=== PATIENT | male | born 1995 | race Caucasian/White ===

== ENCOUNTER 2017-07-10 17:37 | Inpatient (IN) | payer MEDICAID ==
[2017-07-10] MEDS ORDERED: LORazepam 2 MG/ML INJ IVP ONE (17:43)
[2017-07-10] MEDS ORDERED: NS 1,000 ML IV ONE (17:47)
--- NOTE | 2017-07-10 17:47 | CPEKG ---
Heart Rate: 155 RR Interval: 387 P-R Interval: 164 QRSD Interval: 86 QT Interval: 208 QTC Interval: 334 P [place]: 72 QRS [place]: 86 T Wave [place]: -51 EKG Severity - ABNORMAL ECG - EKG Impression: SINUS TACHYCARDIA EKG Impression: RAJESH, CONSIDER BIATRIAL ABNORMALITIES Electronically Signed By: Alex Herrera 10-Jul-2017 21:42:49
--- NOTE | 2017-07-10 17:50 | EDPHY ---
H & P Time Seen by Provider: 07/10/17 17:40 HPI/ROS: Chief complaint. Benadryl overdose HPI. 21-year-old male here by EMS about 1 hr after taking 125 mg Benadryl tablets to help him stop coughing. Initially the patient had normal mental status. He is subsequently quit speaking to the paramedics. They find him quite tachycardic. The patient arrives and about 1 min after arrival the patient has a generalized tonic-clonic seizure lasting about 1 min. He is given Ativan intravenously. Seizure stops. Vital signs show the patient be tachycardic and hypertensive. Patient does not speak and no other information is known about this patient. ROS Unable as the patient does not speak Past Medical/Surgical History: Unknown past medical history other than the patient has 2 sets of labs that were ordered from [facility] [place] so the patient was have pre-existing mental health problem. Social History: Unknown social history Physical Exam: General Appearance: Nonverbal male eyes open status post having a seizure. Vital signs show heart rate to be 157 and blood pressure 126/50. Tachypneic but breathing on his own with 97% pulse ox. Eyes: Pupils are dilated and poorly reactive. ENT, mucous membranes dry Respiratory: Tachypnea but lungs are clear Cardiovascular: Tachycardia with regular rate Gastrointestinal: Abdomen is soft Neurological: Eyes open; moves all extremities. Nonverbal; seizure Skin:[ Warm and dry, no rashes.] Musculoskeletal: No obvious musculoskeletal findings Extremities [ symmetrical, full range of motion.] Psychiatric: Nonverbal Constitutional: Initial Vital Signs Temperature (C) 37.2 C 07/10/17 17:37 Heart Rate 180 H 07/10/17 17:37 Respiratory Rate 34 H 07/10/17 17:37 Blood Pressure 165/92 H 07/10/17 17:37 O2 Sat (%) 98 07/10/17 17:37 O2 Delivery Mode Non-Rebreather Mask O2 (L/minute) 15 Allergies/Adverse Reactions: Unable to Assess Allergy (Verified 07/10/17 19:26) Home Medications: Medication Instructions Recorded Unobtainable 07/10/17 Medical Decision Making - Diagnostics EKG Interpretation: EKG interpreted by me shows sinus tachycardia normal interval and axis. QRS otherwise appears normal with narrow complex. No significant ST elevation or depression. Rate is 155 Imaging Results: Imaging Impressions Chest X-Ray 07/10/17 17:47 Impression: 1. No acute pulmonary disease. 2. Consider chest two views when the patient's medical condition permits. Chest X-Ray 07/10/17 18:31 Impression: Slightly low ET tube. Results discussed with Dr. Alex Herrera at 18:47 PM. Chest X-Ray 07/10/17 18:48 Impression: Satisfactory position of endotracheal tube. Procedures: IV normal saline, monitor. Ativan was given for seizure. ED Course/Re-evaluation: I consulted and discussed the case with poison Control. They recommend intubation and Ativan. They recommend serial EKGs watching for QRS widening which will be treated with bicarbonate. They recommend liberal use of benzodiazepines case # [id number] Patient is preoxygenated. I tried to give informed discussion and consent with the patient however he does not respond. He has horizontal nystagmus. Patient is given 20 mg of etomidate followed by 125 mg of succinylcholine. He is intubated on 1st pass using glide scope. Cords were visualized. I visualize tube passing through the cords. Colorimeter is checked in we get good color change. Breath sounds are found to be symmetrical. Oxygen saturation is stable and 98%. There is steam in the tube. Following intubation patient is given Versed 5 mg IV followed by vecuronium 8 mg IV. Propofol drip is ordered. Post intubation chest x-ray is ordered I consulted discussed the case with Dr. Rod, hospitalist who agrees to the admission and sees the patient in the emergency department Endotracheal tube is found to be somewhat down the right mainstem bronchus. It is repositioned. Differential Diagnosis: Apparent Benadryl overdose. Patient has an empty pill bottle with 125 mg Benadryl tablets missing. He was apparently found by EMS at the store where he just bought the Benadryl pills. No evidence of intracranial bleeding or other ingestions at this point. Patient's airway was not protected by the patient's so he has been intubated. Plan is ICU admission. Critical Care Time: Critical care time exclusive procedures 50 min - Data Points Laboratory Results: Laboratory Results 07/10/17 17:40 07/10/17 17:40 07/10/17 07/10/17 07/10/17 18:46 17:40 17:40 WBC RBC Hgb Hct MCV MCH MCHC RDW Plt Count MPV Neut % (Auto) Lymph % (Auto) Banner % (Auto) Eos % (Auto) Baso % (Auto) Nucleat RBC Rel Count Absolute Neuts (auto) Absolute Lymphs (auto) Absolute Monos (auto) Absolute Eos (auto) Absolute Basos (auto) Absolute Nucleated RBC Immature Gran % Immature Gran # PT 14.4 SEC SEC (12.0-15.0) INR 1.10 (0.83-1.16) APTT 30.9 SEC SEC (23.0-38.0) Sodium 158 mEq/L H mEq/L (135-145) Potassium 3.8 mEq/L mEq/L (3.5-5.2) Chloride 112 mEq/L H mEq/L (97-110) Carbon Dioxide 16 mEq/l L mEq/l (22-31) Anion Gap 30 mEq/L H mEq/L (8-16) BUN 16 mg/dL mg/dL (7-23) Creatinine 1.1 mg/dL mg/dL (0.7-1.3) Estimated GFR > 60 Glucose 73 mg/dL mg/dL (70-100) Calcium 10.5 mg/dL H mg/dL (8.5-10.4) Total Bilirubin 0.8 mg/dL mg/dL (0.1-1.4) Conjugated Bilirubin 0.4 mg/dL mg/dL (0.0-0.5) Unconjugated Bilirubin 0.4 mg/dL mg/dL (0.0-1.1) AST 44 IU/L IU/L (17-59) ALT 31 IU/L IU/L (21-72) Alkaline Phosphatase 85 IU/L IU/L (38-126) Troponin I < 0.012 ng/mL ng/mL (0.000-0.034) Total Protein 8.4 g/dL H g/dL (6.3-8.2) Albumin 5.2 g/dL H g/dL (3.5-5.0) Lipase 138 IU/L IU/L (23-300) Salicylates < 1.0 mg/dL L mg/dL (2.0-20.0) Urine Opiates Screen NEGATIVE (NEGATIVE) Acetaminophen < 10 mcg/mL L mcg/mL (10-30) Urine Barbiturates NEGATIVE (NEGATIVE) Ur Phencyclidine Scrn NEGATIVE (NEGATIVE) Ur Amphetamine Screen NEGATIVE (NEGATIVE) U Benzodiazepines Scrn NEGATIVE (NEGATIVE) Urine Cocaine Screen NEGATIVE (NEGATIVE) U Marijuana (THC) Screen NEGATIVE (NEGATIVE) Ethyl Alcohol < 10 mg/dL mg/dL (0-10) 07/10/17 17:40 WBC 11.68 10^3/uL H 10^3/uL (3.80-9.50) RBC 5.74 10^6/uL 10^6/uL (4.40-6.38) Hgb 18.0 g/dL H g/dL (13.7-17.5) Hct 56.3 % H % (40.0-51.0) MCV 98.1 fL fL (81.5-99.8) MCH 31.4 pg pg (27.9-34.1) MCHC 32.0 g/dL L g/dL (32.4-36.7) RDW 12.4 % % (11.5-15.2) Plt Count 279 10^3/uL 10^3/uL (150-400) MPV 10.8 fL fL (8.7-11.7) Neut % (Auto) 58.1 % % (39.3-74.2) Lymph % (Auto) 24.3 % % (15.0-45.0) Banner % (Auto) 15.2 % H % (4.5-13.0) Eos % (Auto) 0.9 % % (0.6-7.6) Baso % (Auto) 0.6 % % (0.3-1.7) Nucleat RBC Rel Count 0.2 % % (0.0-0.2) Absolute Neuts (auto) 6.79 10^3/uL H 10^3/uL (1.70-6.50) Absolute Lymphs (auto) 2.84 10^3/uL 10^3/uL (1.00-3.00) Absolute Monos (auto) 1.77 10^3/uL H 10^3/uL (0.30-0.80) Absolute Eos (auto) 0.11 10^3/uL 10^3/uL (0.03-0.40) Absolute Basos (auto) 0.07 10^3/uL 10^3/uL (0.02-0.10) Absolute Nucleated RBC 0.02 10^3/uL H 10^3/uL (0-0.01) Immature Gran % 0.9 % % (0.0-1.1) Immature Gran # 0.10 10^3/uL 10^3/uL (0.00-0.10) PT INR APTT Sodium Potassium Chloride Carbon Dioxide Anion Gap BUN Creatinine Estimated GFR Glucose Calcium Total Bilirubin Conjugated Bilirubin Unconjugated Bilirubin AST ALT Alkaline Phosphatase Troponin I Total Protein Albumin Lipase Salicylates Urine Opiates Screen Acetaminophen Urine Barbiturates Ur Phencyclidine Scrn Ur Amphetamine Screen U Benzodiazepines Scrn Urine Cocaine Screen U Marijuana (THC) Screen Ethyl Alcohol Medications Given: Acetaminophen (Tylenol Rectal) 650 mg IA Q4HRS PRN PRN Reason: Pain, Mild/Fever,Can't Take PO Stop: 01/06/18 19:19 Last Admin: 07/10/17 19:22 Dose: 650 mg Fentanyl 1,000 mcg/ Sodium (Chloride) 100 mls @ 0 mls/hr IV CONT MICHAEL; Per Protocol PRN Reason: Protocol Stop: 07/20/17 19:18 Last Admin: 07/10/17 20:36 Dose: 100 mls Discontinued Medications Etomidate (Etomidate) 20 mg IVP EDNOW ONE Stop: 07/10/17 18:07 Last Admin: 07/10/17 18:16 Dose: 20 mg Sodium Chloride (Ns) 1,000 mls @ 0 mls/hr IV EDNOW ONE; Wide Open PRN Reason: Protocol Stop: 07/10/17 17:48 Last Admin: 07/10/17 17:53 Dose: 1,000 mls Propofol (Diprivan 10 Mg/Ml (Premix)) 50 mls @ 0 mls/hr IV EDNOW ONE; As Directed PRN Reason: Protocol Stop: 07/10/17 18:33 Last Admin: 07/10/17 18:50 Dose: 50 mls Lorazepam (Ativan Injection) 1 mg IVP EDNOW ONE Stop: 07/10/17 17:44 Last Admin: 07/10/17 17:46 Dose: 1 mg Midazolam HCl (Versed) 5 mg IM EDNOW ONE Stop: 07/10/17 18:32 Last Admin: 07/10/17 18:46 Dose: 5 mg Succinylcholine Chloride (Quelicin) 120 mg IVP EDNOW ONE Stop: 07/10/17 18:08 Last Admin: 07/10/17 18:17 Dose: 120 mg Vecuronium Anderson (Vecuronium Anderson) 8 mg IV EDNOW ONE Stop: 07/10/17 18:33 Last Admin: 07/10/17 18:49 Dose: 8 mg Departure - Departure Disposition: [facility] Inpatient Acute Clinical Impression: Benadryl ingestion Condition: Fair
[2017-07-10] MEDS ORDERED: ETOMIDATE 40 MG/20 ML INJ IVP ONE (18:06)
[2017-07-10] MEDS ORDERED: SUCCINYLCHOLINE CHLORIDE 200 MG/10 ML SYR IVP ONE ×2 (18:07→20:44)
[2017-07-10 18:08] LABS: PLATELET COUNT 279 10^3/uL (150-400)
[2017-07-10 18:20] LABS: INR 1.1 (0.83-1.16); PROTIME(PATIENT) 14.4 SEC (12.0-15.0)
[2017-07-10] MEDS ORDERED: MIDAZOLAM 10 MG/2 ML VIAL IM ONE (18:31)
[2017-07-10] MEDS ORDERED: PROPOFOL/EMULSION 50 ML IV ONE (18:32)
[2017-07-10] MEDS ORDERED: VECURONIUM BROMIDE 10 MG VIAL IV ONE (18:32)
--- NOTE | 2017-07-10 19:07 | CPEKG ---
Heart Rate: 114 RR Interval: 526 P-R Interval: 132 QRSD Interval: 80 QT Interval: 352 QTC Interval: 485 P [place]: 79 QRS [place]: 88 T Wave [place]: -3 EKG Severity - BORDERLINE ECG - EKG Impression: SINUS TACHYCARDIA EKG Impression: BORDERLINE T ABNORMALITIES, INFERIOR LEADS EKG Impression: BORDERLINE PROLONGED QT INTERVAL Electronically Signed By: Alex Herrera 10-Jul-2017 21:42:41
[2017-07-10] MEDS ORDERED: LORazepam 2 MG/ML INJ IVP PRN (19:10)
[2017-07-10] MEDS ORDERED: ACETAMINOPHEN 650 MG SUPP PR ONE (19:19)
[2017-07-10] MEDS: ACETAMINOPHEN 650 MG SUPP PR PRN (19:22)
[2017-07-10] MEDS ORDERED: ONDANSETRON 4 MG/2 ML VIAL IVP PRN (19:26)
[2017-07-10] MEDS ORDERED: fentaNYL/NACL 100 ML IV SCH ×2 (19:30)
[2017-07-10 19:39] LABS: CREATINE KINASE 215 IU/L (0-224)
--- NOTE | 2017-07-10 20:22 | GHP ---
[f rep st] HISTORY AND PHYSICAL DATE OF ADMISSION: 07/10/2017 HISTORY OF PRESENT ILLNESS: The patient is a 21-year-old gentleman with an apparent psychiatric hist ory, who took one hundred 25 mg Benadryl tablets in order to treat a cough. It sounds like he then s ummoned EMS, and he was alert when they came and got there, but he became more somnolent during the t rip to the hospital and then became subsequently tachycardic and unresponsive. He had a generalized tonic-clonic seizure lasting about a minute. Upon arrival to the emergency department, he was given Ativan. The emergency department physician noticed the patient had lateral nystagmus when he was int ubating him. There was no evidence of diarrhea all over the patient when they came and got him. REVIEW OF SYSTEMS: Complete 10-point review of systems was unable to be obtained because of an obtun ded patient. PAST MEDICAL HISTORY: Unknown. He has had 2 sets of labs ordered from [facility], which is a local Behavior[facility]. SOCIAL HISTORY: Unknown. FAMILY HISTORY: Unknown. ALLERGIES: Unknown. MEDICATIONS: Unknown. PHYSICAL EXAMINATION: VITAL SIGNS: Temp 37.2, now 38.4. Blood pressure 165/92. Pulse 180, now 112 . Breathing 34 times a minute, now 12, 98% on a non-rebreather now on a ventilator. GENERAL: He is intubated, sedated. Sclerae injected. Pupils are 4 mm and reactive. NECK: Supple without lymphad enopathy or JVD. LUNGS: Clear to auscultation anterolaterally. HEART: S1, S2. Tachycardic. ABDO MEN: Soft. Bowel sounds are present. There is no rebound. There is no guarding. LOWER EXTREMITIE S: Without edema. Calves nontender. SKIN: Without rash. NEUROLOGIC: Notable for an intubated, s edated patient who was obtunded, but otherwise nonfocal. LABORATORY DATA: White count is 11.7, hematocrit is 56, platelets are 279,000. INR is 1.1. Sodium is 158, potassium 3.8, chloride 112, bicarb 16, BUN 16, creatinine 1.1. Calcium is 10.5. Troponin i s less than 0.012. LFTs are normal. CK is pending. Lipase is pending. ABG is pending. Tox screen is negative for salicylates, acetaminophen, alcohol, as well as opiates, barbiturates, PCP, amphetam ine, benzodiazepines. [employer] level is pending. EKG on presentation shows sinus tach at 155 with no rmal axis and intervals. Chest x-ray on presentation interpreted by me shows no active pulmonary dis ease. Subsequent EKG shows sinus at 114 with normal axis and intervals and no ST or T-wave changes. Chest x-ray shows an intubated patient with an ET tube in satisfactory position. I discussed the case with Dr. Alex Herrera and Dr. Chico Henriquez. ASSESSMENT/PLAN: 21-year-old gentleman presents with Benadryl overdose, seizure, hyponatremia. 1. Benadryl overdose. Presumably this was a volitional move, suicidal gesture. At this point in ti me, he is too obtunded to leave. So we can hold off on an M1 hold for now. Certainly, if he tries t o leave, an M1 hold would be appropriate. 2. Benadryl overdose. The toxidrome includes seizures, obtundation, sinus tachycardia, as well as s omnolence. We will follow him on telemetry, given the risk for widening of his QRS. We will provide p.r.n. benzodiazepines. 3. Hypernatremia. This is a surprising finding. There is some consideration it may have been drawn from near his IV fluids. However, that would not explain his high calcium and his high hematocrit a lso drawn off the same line it is repeating now. He definitely has a free water deficit if this is, in fact, the case. I have called [facility], who will see him in consultation. He received a liter of IV fluids. I will await further IV fluid administration before providing him with more. We will also check a serum osmoles, urine osmoles, calculated urine osmol gap. Diabetes insipidus and lithium poi soning are considered. [employer] level is pending. It is notable that the patient has clear urine in his Ngo, but that is after administration of normal saline. In summary, wait for the repeat value to verify that this is, in fact, the case and how to manage it. We will also send urine osmolality. If urine osmolalities are low in the setting of hypernatremia, this is likely consistent with diabet es insipidus. 4. Anion gap acidosis. Workup as above. ABG is pending. This may have been as a result of his sei zure. The patient had a seizure at the time of presentation. 5. Sinus tachycardia attributable to Benadryl overdose. 6. Polycythemia. The patient appears clinically euvolemic now and perhaps is dry. 7. Disposition: ICU. 8. Prophylaxis: Pharmacologic prophylaxis indicated. However, wait for his noncontrast head CT. 9. Seizure in an unresponsive patient. We will check a noncontrast head CT prior to sending him ups taileelee. DISPOSITION: ICU. /[id number]/MODL
[2017-07-10] MEDS ORDERED: ETOMIDATE 40 MG/20 ML INJ ONE (20:44)
--- NOTE | 2017-07-10 21:33 | ASMTCMCOM ---
CM Note CM Note Notes: Pt presented to the ED via EMS after reportedly ingesting ~100 25mg Benadryl tabs "to treat a cough." Pt arrived unresponsive and was intubated. Per EMS patient appeared to have a seizure en route to the ED. Able to reach pt's father, Brennan Kowalski ([phone]) and pt's stepmother, Coby Kowalski ([phone]) who both live in [place]. Updated on pt's status. Coby and Brennan said the patient was at their home in [facility] the last two days and they just sent him back to [place] via bus. Pt had told them he was looking forward to going to school or seeking a job in [place]. They said they thought patient was doing better and "handling his emotional stress" well. Pt has a history of mental health issues but a specific diagnosis is unclear. Brennan says pt was diagnosed with Autism around the age of 1-2 yrs old. Pt was discharged from [employer] recently, due to "mental health" reasons, and then went to live with his biological mother, Lisa Vazquez, in [place] but then Brennan and Coby got him a flight back to [place]. Brennan states pt doesn't have "the best" relationship with Lisa and that he doesn't have her phone number and hasn't spoken with her in >1 yr. He says he will try to find a way to notify her but that he said pt states she "causes him more stress" and might have been taking money from pt. Pt has been staying at [facility] ([phone]) youth group home here in [place]; spoke with staff member Qamar and he said they did not have any emergency contact info listed and didn't have much further information re:pt's homelessness, social situation etc. Pt was had labs drawn for [place] in 12/2015 and 05/2016; this CM contacted [facility] but they did not have any emergency contact info listed for pt either. This CM called [employer] and provided pt's parents #s relayed that they want to be called if pt's status changes overnight. Brennan and Coby hope to either arrive to [facility] overnight or early in the morning. Pt is not on an M1 at this but per hospitalist report, if pt awakens and tries to leave, pt will be placed on an M1. CM to follow. Date Signed: 07/10/2017 09:32 PM Electronically Signed By:Jazlyn Humphries RN
--- NOTE | 2017-07-10 21:35 | ASMTLACE ---
[place] Acuity / Level of Answers: Yes Care: Did the patient have an inpatient admission? # of Emergency department Answers: 1-2 visits in the last 6 months Social determinants Answers: History of substance abuse (ETOH, street drugs, prescription drugs, etc.) Homelessness (street, snf) Mental health diagnosis (anxiety, depression, pers onality disorders, etc.) Lack of community resources and/or lack of social support (no pcp, lives alone, transportation, warren d) Score: 17 Date Signed: 07/10/2017 09:33 PM Electronically Signed By:Jazlyn Humphries RN
[2017-07-10] MEDS: NS 1,000 ML IV SCH (21:37)
[2017-07-10] MEDS: MIDAZOLAM HCL 50 MG in NS 50 ML IV SCH (22:17)
[2017-07-11] MEDS: ACETAMINOPHEN 650 MG SUPP PR PRN ×2 (00:42→10:12)
[2017-07-11] MEDS: MIDAZOLAM HCL 50 MG in NS 50 ML IV SCH (04:32)
[2017-07-11 04:46] LABS: PLATELET COUNT 177 10^3/uL (150-400)
[2017-07-11] MEDS: NS 1,000 ML IV SCH ×2 (05:20→22:22)
--- NOTE | 2017-07-11 12:34 | GCON ---
[f rep st] CONSULTATION PULMONARY/CRITICAL CARE CONSULTATION DATE OF CONSULTATION: 07/11/2017 REFERRING PHYSICIAN: Hector Rod MD REASON FOR REFERRAL: Evaluation and management of respiratory failure and diphenhydramine overdose. HISTORY: Mr. Kowalski is a 21-year-old male with a history of mental health problems and multiple i ntentional overdose attempts, who apparently took one hundred 25 mg Benadryl tablets. He apparently took these around 4 or 5 o'clock last night and was brought to EMS within an hour. He was alert when he showed up, but became more somnolent and became tachycardic and responsive. He had a generalized tonoclonic seizure lasting about a minute. He was given Ativan and was intubated. PAST MEDICAL HISTORY: MENTAL HEALTH: Patient has mental health disorder. ADMISSION MEDICATIONS: Unknown. ALLERGIES: None. SOCIAL HISTORY: Patient apparently has family in the area. There is no known history of substance ab use. FAMILY HISTORY: Unknown. REVIEW OF SYSTEMS: Unobtainable. PHYSICAL EXAMINATION: GENERAL: The patient is intubated and sedated with Versed and fentanyl. He V ersed had just stopped and he is minimally responsive, just starting to briefly respond to commands. VITAL SIGNS: Blood pressure 107/52 with a heart rate of 98. He is afebrile. Oxygen saturations ar e 100% on 40% oxygen. He is afebrile with a temperature of 38.5. HEENT: Normocephalic and atraumat ic. No icterus. NECK: No JVD. Trachea is midline. CHEST: Clear to auscultation. CARDIAC: Regu lar rate and rhythm without murmur. ABDOMEN: Soft, nontender. Bowel sounds are present. EXTREMITI ES: No clubbing, cyanosis, or edema. NEUROLOGIC: The patient is sedated and weakly follows command s, moving all extremities. LABORATORY DATA: White blood count 11.6, stable from last night. Hemoglobin is 14.7. Chemistry kristel up is 143, down from 158 at admission. Patient has an anion gap of 8, down from 30 at admission. Ca lcium is 7.3 and albumin is 5.2. Potassium is 3.9. A urine tox screen is negative, as are salicylat e, acetaminophen and alcohol levels. [place] level is less than 0.2. A chest x-ray shows some basil ar mild opacities. Images reviewed by me. An arterial blood gas shows a pH of 7.38, PO2 of 133, a C O2 of 30, and a bicarbonate of 19 on 40% oxygen and an assist-control rate of 14 with a tidal volume of 590 last night. Electrocardiogram shows a QT interval of 436 with sinus tachycardia. ASSESSMENT: 1. Diphenhydramine overdose. Patient took a large overdose last night. He had a seizure upon admis tank, although that could have been related to hypoxemia/respiratory depression. He has had no furth er seizure activity. He had a borderline prolonged QT last night, but this has not worsened overnigh t. He has been stable on the ventilator and is now starting to wake up since Versed, which he has be en on all night, has been stopped. 2. Respiratory failure. This is due to airway protection in the presence of a seizure and respirato ry depression in the emergency department. He is now starting to breathe spontaneously and has good gas exchange. 3. Anion gap metabolic acidosis. The patient initially had a fairly wide anion gap of 30, but this has now normalized. 4. Hypocalcemia. The patient's calcium level has fallen to 7.3. He had an albumin of 5.2 last nigh t, but he may have had some dilution since then, so it is unclear if he truly has hypocalcemia. RECOMMENDATIONS: 1. Will hold Versed and fentanyl and extubate if he is able to breathe spontaneously. 2. Check an ionized calcium. 3. Plan on an M1 hold once the patient is extubated, and mental health evaluation once he has been m edically cleared. /[id number]/MODL
--- NOTE | 2017-07-11 14:28 | ASMTCMCOM ---
CM Note CM Note Notes: Patient's dad has arrived and is at patient's bedside. Patient may be extubated today. M1 hold to be placed when patient starts to wake up. We will notify [facility] for eval when patient is medically stable. CM to follow. Date Signed: 07/11/2017 02:28 PM Electronically Signed By:Sruthi Escamilla LCSW
--- NOTE | 2017-07-11 15:07 | PDMN ---
Medical Necessity Medical necessity: est los>2mn for intentional Benadryl overdose, with seizure, obtundation, tachycardia, anion gap acidosis, and hypernatremia; admit to ICU, requires tele,renal consult, and further w/u; per order and H&P 07/10/17
--- NOTE | 2017-07-11 15:50 | HOSPPROG ---
Hospitalist Progress Note Assessment/Plan: DIAGNOSES: -acute intentional Benadryl overdose with 2500 mg single dose -acute respiratory failure requiring intubation and mechanical ventilation -acute anticholinergic toxidrome with flushing and high fevers, urine retention , tachycardia, dry mouth, sedation -metabolic acidosis with anion gap 30 -absence of evidence of any other ingested substances at this time -very minimal bibasilar pulmonary infiltrates with question of possible aspiration on chest x-ray -bipolar disorder with long history of poor control and reported history of 7 prior suicide attempts with medications used in overdose We have just now been able to extubate the patient safely. He is breathing adequately on 2 L of nasal cannula oxygen. His voice is extremely weak and his mouth extremely dry so he is unable to communicate very well by speaking but he is communicating with us, does appear oriented to what we are saying, cooperative at the bedside. His family a including parents and brother oral here and supportive at the bedside for him. 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 Follows respiratory function very closely, follow for any signs of aspiration Continue ICU care at this time I have now placed him on M1 hold Once clearly medically stable for transfer out of ICU will contact the mental health team to common do assessment, we are recommending inpatient mental health care at that time due to the high risk nature of this episode and his repeated episodes and history of underlying mental health disorder SUBJECTIVE: Patient is just now extubated We are unable to adequately assess symptoms as he is OBJECTIVE Vitals reviewed: T-max 39 degrees, some tachycardia, otherwise stable vitals Workers Compensation Claims Assistant, my review: Sinus tachycardia Exam: alert oriented, still fairly sedated and with a very weak voice and severely dry mouth, unable to communicate effectively; he does shake his head yes and no at times and appears to not have any significant pain at this point, does recognizes that he is in the hospital, apparently does recognize his family at the bedside skin warm dry color ok resps not labored lungs clear BSs heart regular abd soft nondistended nontender, bowel sounds currently absent limbs warm, no edema Ngo catheter in place draining clear yellow urine iv sites ok 1 in each arm Laboratory data: On chemistry his anion gap has resolved, no other acute changes CBC stable Objective: Vital Signs Temp Pulse Resp BP Pulse Ox 39.4 C H 99 14 122/60 H 100 07/11/17 12:30 07/11/17 14:00 07/11/17 14:00 07/11/17 14:00 07/11/17 14:00 Laboratory Results 07/11/17 04:30 07/11/17 04:30 07/10/17 07/11/17 07/12/17 06:59 06:59 06:59 Intake Total 2746.1 Output Total 1175 Balance 1571.1 PT 14.4 SEC (12.0-15.0) 07/10/17 17:40 INR 1.10 (0.83-1.16) 07/10/17 17:40 - Time Spent With Patient Time Spent with Patient: greater than 35 minutes Time Spent with Patient: Greater than 35 minutes spent on this patients care, greater than 50% of time spent counseling, educating, and coordinating care regarding the above mentioned plan. ICD10 Worksheet Patient Problems: Problems Problem Status Onset Suicide attempt by drug ingestion Acute - ICD10 Problem Qualifiers (1) Suicide attempt by drug ingestion
[2017-07-11] MEDS ORDERED: BIOTENE DRY MOUTH MOUTHWASH 237 ML BTL MM PRN (20:00)
[2017-07-11] MEDS ORDERED: ACETAMINOPHEN 325 MG TAB PO PRN (20:55)
[2017-07-12] MEDS: NS 1,000 ML IV SCH (06:17)
--- NOTE | 2017-07-12 10:54 | HOSPPROG ---
Hospitalist Progress Note Assessment/Plan: DIAGNOSES: -acute intentional Benadryl overdose with 2500 mg single dose -acute respiratory failure requiring intubation and mechanical ventilation -acute anticholinergic toxidrome with seizure, flushing and high fevers, urine retention, tachycardia, dry mouth, sedation -metabolic acidosis with anion gap 30 -absence of evidence of any other ingested substances at this time -very minimal bibasilar pulmonary infiltrates with question of possible aspiration on chest x-ray -bipolar disorder with long history of poor control and reported history of 7 prior suicide attempts with medications used in overdose At this point has ever mild elevation of heart rate and temperature, but the rest of his anticholinergic toxidrome is resolved. It is expected that over the next few hours this afternoon this will return to normal. At this point he is medically stable for discharge from acute care unit. Will need to get the mental health team to come assess some to make it to recommendation for disposition regarding the next step in mental health care after this dangerous overdose. I had a long discussion at the bedside with the patient about his situation. He understands that this could have been a fatal overdose. He is very much wanting to move forward and get into a better situation, but he is hoping he does not need inpatient mental health care. Patient seen by me on hospitals rounds as well as multidisciplinary rounds today I have reviewed in detail with Dr Alton Zazueta PLANS: At this point is stable for discharge from acute medical care. Will contact mental health assessment team for recommended disposition. SUBJECTIVE: Some mild soreness at the uvula and still with a dry mouth otherwise he feels well with no pain no nausea no symptoms of fever no dyspnea There been no observed seizures OBJECTIVE Vitals reviewed: Pulse now down into the mid 90s temperature 37.4 degrees otherwise stable vitals Psychology Tech, my review: Sinus rhythm, no arrhythmia Exam: alert oriented, wide awake. He interacts normally with me, not confused, not hallucinating, no tremors. skin warm dry color ok resps not labored lungs clear BSs heart regular abd soft nondistended nontender, bowel sounds currently absent limbs warm, no edema Ngo catheter in place draining clear yellow urine iv sites ok 1 in each arm Objective: Vital Signs Temp Pulse Resp BP Pulse Ox 38.2 C 108 H 21 H 124/75 H 93 07/12/17 10:00 07/12/17 10:07/12/17 10:07/12/17 10:00 07/12/17 10:00 Laboratory Results 07/11/17 04:30 07/11/17 04:30 07/11/17 07/12/17 07/13/17 06:59 06:59 06:59 Intake Total 2746.1 3415 Output Total 1175 3150 Balance 1571.1 265 PT 14.4 SEC (12.0-15.0) 07/10/17 17:40 INR 1.10 (0.83-1.16) 07/10/17 17:40 - Time Spent With Patient Time Spent with Patient: greater than 35 minutes Time Spent with Patient: Greater than 35 minutes spent on this patients care, greater than 50% of time spent counseling, educating, and coordinating care regarding the above mentioned plan. ICD10 Worksheet Patient Problems: Problems Problem Status Onset Suicide attempt by drug ingestion Acute - ICD10 Problem Qualifiers (1) Suicide attempt by drug ingestion
[2017-07-12] MEDS: BIOTENE DRY MOUTH ORAL RINSE 237 ML BTL MM PRN (16:09)
--- NOTE | 2017-07-12 16:55 | ASMTCMCOM ---
CM Note CM Note Notes: Met with Carlos's father and step mother who feel their son needs inpatient treatment. They are concerned because he is trying to say he is fine to go home. Patient has refused to answer any questions about why he took the benadryl for his dad, however he did tell the nurses that he has no recollection of what happened. Patient's dad says he is on disability for being on the autism spectrum and recently they have requested his checks go to him vs. his mother.Patient's father wants patient to be evaluated for Bipolar Disorder since his mother is Bipolar. Although he has been in psych units previously they have never gotten a diagnosis. Patient's dad states he has a lot of characteristics of Bipolar Disorder, including becoming energetic and grandiose. Patient has medically cleared for evaluation at 16:00. [facility] was notified and [facility] states they will be here within an hour. CM will follow. Date Signed: 07/12/2017 04:54 PM Electronically Signed By:Surthi Escamilla LCSW
--- NOTE | 2017-07-12 18:24 | PDDCSUM ---
Discharge Summary Discharge Summary: DISCHARGE DIAGNOSES: -acute intentional Benadryl overdose with 2500 mg single dose -acute respiratory failure requiring intubation and mechanical ventilation -acute anticholinergic toxidrome with seizure, flushing and high fevers, urine retention, tachycardia, dry mouth, sedation -metabolic acidosis with anion gap 30 -absence of evidence of any other ingested substances at this time -acute ulceration of soft palate/uvula, likely due to severe oral dryness, also possibly pressure injury from endotracheal tube -bipolar disorder with long history of poor control and reported history of 7 prior suicide attempts with medications used in overdose CONSULTANTS: Dr. Rajesh Zazueta of Critical Care pulmonology PROCEDURES: endotracheal intubation and mechanical ventilation HOSPITAL COURSE SUMMARY: This patient with long history of bipolar disorder who has been declining to take medication for that disorder, and with a history of 5 prior overdose suicide attempts, took on the day of admission wonder tablets of 25 mg Benadryl. Around an hour afterwards he called for help and was brought into the hospital emergency room. Shortly thereafter he became up to 100 and then unresponsive and was not protecting his airway and had acute respiratory distress. He was orally intubated and placed on mechanical ventilator. He did have a seizure in the emergency room as well. Aside from the seizures and unconsciousness, his toxidrome included high fevers to 39 degrees, tachycardia with fast sinus rhythm, dry mouth, flushing of the skin, acute urinary retention requiring Ngo catheterization, constipation. He was followed in the ICU with supportive care. He at this point he has recovered very nicely with resolution of all aspects of his toxidrome though he still has slightly fast heart rate in the 90s. He has not had any recurrent seizures. The only complication physically for him at this time is a small ulceration of the uvula on the soft palate that may be caused by his oral dryness or possibly pressure from his endotracheal tube. At this time he is stable for discharge from the acute medical care facility. However he is felt to be at high risk of further mental health related problems including repeat suicides. This overdose would very likely have been lethal had he not come to medical attention. The patient himself at this time does not have very good insight into his problems even know he is actually neither confused in the way of a delirium nor overtly psychotic. He does not sound at all willing at this time to take medication for his mental health issues and does not wish to follow recommendations that we have when the mental health team has done their assessment. At this time he remains on an M1 hold. The mental health team is recommending for him inpatient mental health evaluation at Behavioral Health Unit. The patient's family have been very supportive in visiting him regularly during his hospital stay here. As best we are where there has not been a substance abuse issue involved at this time. Will certainly have not seen any signs of will anything that looks like withdrawal syndrome. In terms of medical care going forward the only thing he really appears to need at this time is ongoing mouth rinses with a standard mouthwash for his oral ulceration and this is being prescribed as he transfers to the Behavioral Health Unit. PENDING TEST RESULTS: None MEDICATION CHANGES: Addition of Biotene mouth wash cell times daily for his oral ulcer FOLLOW-UP PLAN: Transferred at this time to inpatient Behavioral Health Unit a [facility] Greater than 35 minutes bedside and care coordination time today
[2017-07-13 07:31] VITALS: BP 126/70
[2017-07-13] MEDS: BIOTENE DRY MOUTH ORAL RINSE 237 ML BTL MM PRN (08:00)
--- NOTE | 2017-07-13 11:37 | ASMTCMCOM ---
CM Note CM Note Notes: PT/OT recommend home for patient. Patient may need home care support. CM will continue to monitor but it looks like d/c independent at this time. CM will follow. Date Signed: 07/13/2017 11:36 AM Electronically Signed By:Sruthi Escamilla LCSW
== END 2017-07-13 13:00 | DRG 812 ==
LOC: EDUNIT# → EEVIPCON 18:58 → F2N 19:51
PROVIDERS: ADMIT Internal Medicine; ATTEND Internal Medicine
PROC: 0BH18EZ Insertion of Endotracheal Airway into Trachea, Via Natural or Artificial Opening Endoscopic (ICD-10-PCS; principal; 2017-07-10)
PROC: 5A1945Z Respiratory Ventilation, 24-96 Consecutive Hours (ICD-10-PCS; principal; 2017-07-10)
DX: T45.0X2A Poisoning by antiallergic and antiemetic drugs, intentional self-harm, initial encounter (principal); J96.00 Acute respiratory failure, unspecified whether with hypoxia or hypercapnia; E87.0 Hyperosmolality and hypernatremia; E87.2 Acidosis; E83.51 Hypocalcemia; D75.1 Secondary polycythemia; F31.9 Bipolar disorder, unspecified; R00.0 Tachycardia, unspecified; R50.9 Fever, unspecified; G40.409 Other generalized epilepsy and epileptic syndromes, not intractable, without status epilepticus; K12.1 Other forms of stomatitis; Z91.5 Personal history of self-harm
CPT/HCPCS: 80305; 96374; G0480; J0330; J2060; J2250; J2704; J3010

== ENCOUNTER 2017-07-13 13:15 | Inpatient (IN) | payer MEDICAID ==
[2017-07-13] MEDS ORDERED: NICOTINE POLACRILEX 2 MG GUM B PRN (14:06)
[2017-07-13] MEDS ORDERED: OLANZapine DISINTEGR 10 MG TAB PO PRN (14:06)
[2017-07-13] MEDS ORDERED: ACETAMINOPHEN 325 MG TAB PO PRN (14:06)
[2017-07-13] MEDS ORDERED: MAGNESIUM HYDROXIDE 30 ML UDCUP PO PRN (14:06)
[2017-07-13] MEDS ORDERED: MAG HYDROX/AL HYDROX/SIMETH 30 ML UDCUP PO PRN (14:06)
[2017-07-13] MEDS ORDERED: BIOTENE DRY MOUTH ORAL RINSE 237 ML BTL MM PRN (14:08)
[2017-07-13] MEDS ORDERED: CEPACOL LOZENGE PO PRN (14:14)
--- NOTE | 2017-07-13 16:25 | BCON ---
[f rep st] BEHAVIORAL HEALTH CONSULTATION DATE OF CONSULTATION: 07/13/2017 REFERRING PHYSICIAN: KIMMY DOWNEY MD REASON FOR REFERRAL: Medical clearance for inpatient behavioral health stay. HISTORY OF PRESENT ILLNESS: This patient was admitted to the [facility] on 07/10/2017, after a significant overdose on diphenhydramine. He had a seizure in the emergency department. He was intubated for a day and ultimately was able to be extubated. He initially had an anion gap acidosis, likely respiratory, and a very high sodium. His metabolic abnormalities resolved, and he was medically stable and ready for discharge. He was noted to have an ulceration of the uvula for which he has been prescribed Biotene. This is presumably due to intubation and also to very dry mucous membranes that he had from anticholinergic toxicity. He is currently without any acute complaints. PAST MEDICAL HISTORY: Bipolar disorder with multiple inpatient psychiatry stays. PAST SURGICAL HISTORY: He has not had surgeries in the past. MEDICATIONS: Prior to admission he was taking no medications. ALLERGIES: There are no known drug allergies. SOCIAL HISTORY: He reports that he lives at a youth housing facility called [facility]. He is a smoker. He is not currently employed, but says that he is signing up soon with the [employer]. He is not in school. FAMILY HISTORY: Noncontributory. PHYSICAL EXAMINATION: GENERAL: This is a well-nourished, well-developed man, appearing his chronologic age; cooperative, and in no acute distress. VITAL SIGNS: Blood pressure is 124/72; heart rate is 104; respiratory rate is 13, and oxygen saturation is 36.7 degrees centigrade. His weight is 79.4 kg for a body mass index of 26.6. HEENT: Extraocular movements are intact. Pupils are equal, round, and reactive to light. Mucous membranes are moist. Dentition is in good condition. He has erythema to his soft palate, uvula, and tonsillar pillars. There is a 0.5 cm area of white exudate at the tip of the uvula. He has a non-crowded airway, Mallampati class I. NECK: Supple. HEART: There is a regular rate and rhythm with no murmurs, rubs, or gallops. He is mildly tachycardic. LUNGS: Clear to auscultation bilaterally. ABDOMEN: Benign. EXTREMITIES: There is no cyanosis, clubbing, or edema. NEUROLOGIC: He is alert and oriented x3. Cranial nerves 2-12 are grossly intact. There is no focal weakness and sensation is intact to light touch. LABORATORY DATA: The most recent laboratories are from the acute hospital stay on 07/11/2017, CBC revealed an elevated white blood cell count at 11.57. There was a predominance of neutrophils and monocytes, but there was no left shift; otherwise, CBC was within normal limits. Coagulation studies revealed a normal PT and PTT. Serum chemistry initially showed hemoconcentration and an anion gap with hyponatremia and a sodium at 158. On 07/11/2017, anion gap had normalized. He had a slightly elevated chloride at 115, and otherwise renal function and electrolytes were within normal limits. Liver functions on 07/10 were normal. Troponin was negative. Creatine kinase was normal at 215. His total protein and albumin were high and lipase was normal at 138. Serum toxicology screen was negative for salicylates, acetaminophen, ethyl alcohol or lithium. Urine toxicology screen was negative for any substances of abuse. ASSESSMENT/RECOMMENDATIONS: 1. Intentional overdose with anticholinergic medication. He still has some tachycardia, but otherwise appears to have recovered with no persisting sequelae. 2. Pharyngitis. Seems somewhat out of proportion 2 days after being extubated. Continue biotene mouth rinse. We will also order a streptococcal screen, as he may have encountered streptococcal pharyngitis prior to his intubation. He reports no history of streptococcal pharyngitis in the past. I see no medical contraindications to this patient's continued stay on the inpatient behavioral health unit or to any psychiatric medications or procedures. Thank you very much for including me in the care of this patient and please do not hesitate to contact me or the hospitalist service should there be a need for further medical evaluation. /[id number]/MODL MTDD
[2017-07-13] MEDS: SENNOSIDES 1 TAB PO SCH (20:25)
[2017-07-14 09:04] LABS: PLATELET COUNT 227 10^3/uL (150-400)
[2017-07-14] MEDS: SENNOSIDES 1 TAB PO SCH ×2 (10:12→20:06)
--- NOTE | 2017-07-14 15:49 | BAPA ---
[f rep st] ADMISSION PSYCHIATRIC ASSESSMENT DATE OF SERVICE: 07/14/2017 CHIEF COMPLAINT: "I can not remember why I took the Benadryl pills." HISTORY OF PRESENT ILLNESS: The patient is a 21-year-old single unemployed man brought to [facility] ED by [facility] after he called 911 stating that he had taken an overdose of Benadryl. He was responsive when EMS arrived, but became tachycardic and unresponsive at the hospital. He was placed on an M1 hold by the MD that states "overdose with Benadryl with lethal dose required intubation and mechanical ventilation for respiratory failure (now extubated) untreated bipolar disorder." Patient currently lives at [facility] in [place]. Patient has no family support in the area. According to the ED report, patient has been an open client with [facility] since June 12, 2017, and has a therapist, but does not take any medications. He does not see a psychiatrist. Does not have anyone prescribing psychotropic medications. When P saw the patient on 06/12, he denied any thoughts, plans or intents to harm himself and denied feeling sad, depressed, anxious. He also did not endorse any symptoms of bipolar disorder and showed no evidence of psychosis. When he was evaluated in the emergency department, the patient says he could not remember why he took the overdose. He says that he had been doing "really, really well lately." Records obtained from [facility] indicated that when he had seen the therapist several weeks ago , that he had endorsed thoughts about jumping off a bridge, but denied having any intent or plan to act on those thoughts. He said that he has been struggling with insomnia at night. This MD met with the patient on the inpatient behavioral services unit on 2016. Patient presented calm, cooperative, pleasant, smiling, laughing, affable , euthymic. Patient denied any thoughts, plans or intents to hurt himself. He also denied feeling sad, depressed, hopeless, helpless, worthless. Patient was future oriented. He told the MD that he has applied and been accepted for the [employer] and he was scheduled to leave for his [employer] placement near [place], [place] this week. MD asked the patient if he had been in contact with the [employer] resident services supervisor to let them know he was in the hospital and he said no , he was able to get a hold of them because he does not have their number. He said that "I would have to look it up online" in order to get their contact information, but patient says that "the people at [facility] are helping me with all that." The patient states that he has [facility] [place] for the past several weeks and says that he still plans on going to his [employer] placement in [place]. He says he is supposed to be there for 6-9 months. He is training to get his [employer] certification and is unsure whether or not he will be returning to [place]. Patient gives no indication that he is having any emotional distress or any emotional dysregulation. He is appropriate, interactive, sociable with peers. He has normal range of affect. He does not endorse any symptoms of depression or anxiety. There is no evidence of psychosis. There are also no signs or symptoms of christa. He does not have any increased goal-directed activity, decreased need for sleep, elevated or elated mood, grandiose delusions, reckless or impulsive behaviors, and no grandiosity. MD questions what led the patient to overdose prior to admission. He says "I have no idea why I did it." The patient states that he no longer has any thoughts about wanting to . He denies having any plans or intents to harm himself or anyone else. As mentioned before, he is definitely optimistic about the future, wants to get his [employer] certification, wants to work and is very excited about going to do [employer] in [place], although he is not sure if he can leave this week or not. MD assured the patient that staff would help him contact his resident services supervisor through [employer] and try to set up some type of aftercare arrangement. The patient states that he does not want to take medication. He says "I got tired of all that crap." Patient admits that he has not sought any type of outpatient psychiatric treatment during the last year, although he is very vague about details. He remembers multiple psych hospitalizations and he remembers doing outpatient treatment at [facility] but can't remember the dates of when he was hospitalized and is confused about when the most recent time he had any outpatient services. PAST PSYCHIATRIC HISTORY: Patient reports that he was diagnosed with autism spectrum disorder. He was in special education classes when he was in elementary school, but he was in regular classroom settings in high school. He states that he has made multiple suicide attempts in the past. He claims maybe 6 serious suicide attempts, but he is not able to provide details. He says that the last time he made a suicide attempt he was admitted to [facility] and he was then transferred to [facility]. He says that all of his psychiatric hospitalizations have happened since he graduated from high school, but that would put them all during the last year to year and a half, which seems unlikely. When this MD asked specifically how long ago the patient had been at [facility], he said "I do not remember" but then later said that all of his psychiatric hospitalizations happened since he was 20 years old, but this MD questions the reliability of the patient in terms of giving an accurate history. He also said at other times that he told the family services assistant in the ED that he wanted to enroll at [facility], that is why he came to [place], but he told the MD very emphatically that he was planning to go to [employer] [facility] in [place] to get a [employer]AGE [employer]ER, so neither 1 of those things may be true. The patient does report having been hospitalized at [facility] and at [facility] both within the last 2 years. He spent some time at [facility]. He says that he was recently diagnosed with bipolar disorder, but cannot remember whether that was his diagnosis when he was at [facility] or just since he has seen providers at [facility]. According to the ED report, patient had his intake first intake appointment with [facility] on 06/12/2017. They state that he does carry a diagnosis of bipolar disorder. However, this MD asked the patient what medications he has taken in the past and after the MD listed a bunch of different medications, the only 2 that the patient could recognize were Lexapro and Effexor. He said that when he has been prescribed medications in the past, it has "always been for depression." He denies ever being on a mood stabilizer. He denies taking any antipsychotic medications. He specifically denied taking lithium, Lamictal or Depakote, and he is not currently being prescribed any medications and does not have a prescriber at [facility]. Patient states that after he got out of [facility], he was followed at [facility], but cannot remember the names of any of his providers and does not know when the last time he saw anyone there was, does not remember the last time he was prescribed or took medications. ALLERGIES: Patient has no known drug allergies. CURRENT MEDICATIONS: Patient is not currently taking any medications. PAST MEDICAL HISTORY: Patient denied any medical or surgical history. He was seen by Dr. Muller when he was admitted to the unit. He did have some pharyngitis secondary to extubation. Dr. Muller noted that his pharyngitis seems "somewhat out of proportion 2 days after being extubated." Dr. Muller recommended continuing Biotene mouth rinse and he also ordered a strep screen, which came back negative. No other medical issues. SOCIAL HISTORY: Patient is single, never been , has no children. He states that he was born in [place]. His parents when he was young. He was raised by his mother, but says that he has been estranged from his mother since she used his social security benefits for herself. He reports that mother is his payee or was up until a couple years ago. He said that his mother "screwed up my benefits" and says that he has not been able to get them himself since then because his mother is his designated payee, but he does not know where his disability money has been going lately. He states that he was living in [place] with his mother and stepfather until they had a falling out over his disability income. The patient moved back to [place], but it does not sound like he was staying with his father. 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 Patient is currently living at [facility]. He states that he graduated from high. FAMILY HISTORY: Patient's father told the ED family services assistant that patient's mother has been diagnosed with bipolar disorder, the only family member that supposedly has any history of mental illness. ADMISSION LABS: [facility] done in [facility]. White cell count was 5.6, hemoglobin 15.8, hematocrit 46.5, platelet count was 227. He also had a strep screen, which came back negative. His urine drug screen was negative for all substances of abuse. Salicylate and acetaminophen level were both undetected. His lithium level was also undetected and his ethyl alcohol level was undetected. His sodium level was 143, potassium was 3.9, BUN 11, creatinine 1.1. Liver function tests: His total bilirubin was 0.8, AST was 44, ALT was 31 , alkaline phosphatase was 85. Creatine kinase was 215. Troponin was undetected. Total protein 18.4. Cholesterol 128, LDL was 57, HDL was 40, lipase was 138, TSH was 1.12. SUBSTANCE USE HISTORY: Patient denies use of any illicit substances. He also denies alcohol use. MENTAL STATUS EXAMINATION: Is a well-developed, appropriately groomed man with a prior diagnosis of depressive disorder and a more recent diagnosis of bipolar disorder. Also has been diagnosed with autism spectrum disorder, although it is unclear to what degree he has received services for that and whether or not there are any learning disabilities. He was in special education classes in elementary school. It is not clear whether that was for social for cognitive developmental problems but says that he was in regular classrooms when he was in high school. He presents as calm, pleasant, cooperative, appropriate, sociable. He is smiling, laughing appropriately. He is interactive with peers, attending group and participating in milieu activities. His thought process is linear and goal directed. His thought content reveals no evidence of psychosis. There are no symptoms of christa present. Patient denies feeling sad, depressed. He denies any thoughts, plans or intents to hurt himself or anyone else. His insight and judgment both appear to be poor as evidenced by the fact that he overdosed on a lethal dose of Benadryl and required intubation and was in the ICU prior to admission, but states now that he cannot remember the reason that he took the medication and he is denying that he has had any recent emotional difficulties or mental health problems. He said that he has been doing "really well" for about the last year. Patient does present, however, as an unreliable historian based upon some contradictions in his story and some vagueness regarding details about his prior mental health treatment. He states that he has been hospitalized 6 times for serious suicide attempts, but cannot remember the details and cannot provide specific dates or even ages when he was in the hospital, where he was in the hospital. He cannot remember medications and he cannot remember the most recent time that he has seen an outpatient provider, even though the emergency department said that he was seen by an family services assistant at [facility] on 06/12/2017, and has had subsequent meetings with his therapist as evidenced by the records that have been sent over from an [facility], but patient cannot recall who we met with or when he saw a provider most recently. Patient also states that he is supposed to go to [employer] in [place] this week. However, he did not mention that at all in the emergency department. Instead, he said that he came to [place] so that he could attend [employer]. IMPRESSION: 1. Major depressive disorder versus bipolar disorder by history. Patient is not currently meeting criteria for either of these diagnoses. He is currently denying any symptoms of depression. There are no signs or symptoms or evidence of christa and no psychotic symptoms present. 2. Autism spectrum disorder by history. 3. Rule out learning disability or intellectual disability disorder based upon prior history of individualized educational program and special education classes in elementary school. 4. Psychosocial stressors include homeless, limited social support, lack of financial support, unemployed. PLAN: 1. Admit patient to the inpatient behavioral services unit on a mental health hold. 2. Monitor for safety. Patient is currently denying any thoughts, plans or intents to hurt himself or anyone else. He is acting appropriately. No risky or dangerous behaviors. Denies any urges to hurt himself. 3. Attempt to clarify the patient's diagnosis through serial clinical interviews and observation and monitoring on the unit. We will also request records from [facility] where he has been seen most recently. 4. Patient is currently stating that he does not want to take any psychotropic medications. He is denying any mental health problems. He is denying feeling depressed or suicidal. There are no signs or symptoms of christa or psychosis present at the current time. 5. Estimated length of stay is 3-5 days. 6. conference coordinator will attempt to contact [employer]. Although the patient is stating he does not have any contact information for [employer], but says that he could find out if he looks online. Patient also says that the folks that he has been working with at [facility] have been helping him apply for [employer], so at a minimum we might be able to obtain some collateral information from any of the staff at [facility]. /[id number]/MODL and [id number]/MODL [facility]
[2017-07-15] MEDS: SENNOSIDES 1 TAB PO SCH ×2 (07:57→20:13)
--- NOTE | 2017-07-15 17:46 | SOAPPROG ---
SOAP Progress Note Assessment/Plan: Assessment: 21 yo man with h/o mood disorder, ASD and multiple SA's. He was BIBA to [facility] ED after SA by OD on Benadryl. He was transferred to after being extubated on . Plan: 07/15/17 17:42 1. Patient signed JAYESH for [employer] and [facility] so CC can speak to his [employer] paralegal supervisor and arrange follow up services. Patient is still refusing medications, but has agreed to see therapist either through [employer] if possible or in [place] where his [employer] training will take place. CC will need to f/u on Sunday since no one at [employer] was available over w/e. 2. Patient continues to deny feeling depressed, sad, anxious. He also denies any SI/HI. There is no evidence of christa or psychosis. 3. Likely to d/c on Sunday once f/u plan finalized. Subjective: Met with patient, reviewed chart and d/w staff. Patient has bright affect, smiling, participating in groups and interacting with peers. He played Boggle this afternoon. He denies any SI/HI, says he has no thoughts, plan or intent to hurt himself or anyone else. He would like to d/c on Sunday, but knows he needs a solid aftercare plan so he has support. Patient continues to tell MD and CC that he is supposed to go to [place], [place] for [employer] training this week. MD is not sure whether this is true or not b/c CC has not been able to contact [employer]. Patient isn't able to remember the names of any of his immediate supervisors at [employer]. Will need to contact them and verify patient has access to treatment after discharge. Patient agrees to sign JAYESH. Objective: Vital Signs Temp Pulse Resp BP Pulse Ox 36.4 C 83 14 108/53 L 96 07/15/17 07:10 07/15/17 07:10 07/15/17 08:01 07/15/17 07:10 07/15/17 08:01 Laboratory Results 07/14/17 06:10 MSE: Affect: Bright, euthymic Mood: "Good" TP: Linear TC: Denies any SI/HI Insight/Judgment: Improved - Time Spent With Patient Time Spent With Patient: 20" - Pending Discharge Pending Discharge Within 24 Hours: Yes Pending Discharge Date: 07/16/17 (Possible d/c on Sunday if aftercare arranged) Pending Discharge Time: 11:00 ICD10 Worksheet Patient Problems: Problems Problem Status Onset Suicide attempt by drug ingestion Acute
[2017-07-16] MEDS: SENNOSIDES 1 TAB PO SCH (08:45)
[2017-07-16] MEDS ORDERED: SENNOSIDES 1 TAB PO PRN (09:04)
--- NOTE | 2017-07-16 11:24 | SOAPPROG ---
SOAP Progress Note Assessment/Plan: Assessment: Cyclothymia Suicide attempt by OD on Diphenhydramine Housing, financial stressors Possible Borderline Intellectual Functioning or Autism Spectrum Disorder Patient appears euthymic but has multiple past suicide attempts by OD and reports no benefit from past trials of Lexapro, Effexor, and Trazodone, hasn't been taking medication recently. Plan: Patient is voluntary Refer to P Coordinate discharge planning with father and step-mother and aunt, who live in [place] and visited patient over weekend Discussed risks/benefits of Symbyax (olanzapine/fluoxetine), including risk of tardive dyskinesia and metabolic syndrome Start Olanzapine 2.5mg QHS, Fluoxetine 10mg QHS Monitor mood stability, judgment, risk of self-harm Discharge back to senior living if stable over next 48 hours Patient signed JAYESH to obtain last discharge summary from [facility] 07/16/17 11:28 Subjective: CC: "I'm OK today" Patient reports moving to [place] 6 months ago and has been doing temporary work and staying in a senior living. Reports he doesn't remember why he overdosed on Benadryl. Reports episodic intense depression alternating with euthymia for several years. Reports receiving benefits for being diagnosed with Autism during childhood, but graduated from [employer]. Reports he was in for a few months but discharged due to 'failure to adapt,' reports this is related to microfractures in feet or ankles. Reports past impulsive overdoses on medication. Reports past diagnoses of depression and anxiety and no benefit from trials of Effexor, Lexapro, and Trazodone. Denies any history of grandiosity, decreased need for sleep, or sustained elevated energy but reports brief 1-2 day episodes of elevated self-esteem and impulsive spending. Denies any history of AH or paranoia. Denies any current somatic complaints. Reports wanting to discharge back to senior living after hospital stay in order to return to work and complete an application for [employer]. Reports he is unwilling to live with father after discharge. Reports no clear benefit from antidepressant trials in the past. Reports depression is episodic lasting 1-4 days at a time. Patient has past ATU and inpatient psychiatric hospitalizations. Objective: Vital Signs Temp Pulse Resp BP Pulse Ox 36.9 C 85 20 107/56 L 95 07/16/17 06:55 07/16/17 06:55 07/16/17 06:55 07/16/17 06:55 07/16/17 06:55 Laboratory Results 07/14/17 06:10 Alert male, cooperative and calm. Talkative. Speech RRR. Mood 'alright' Affect briefly reactive smiling. Thoughts organized, tangential at times. Denies SI or HI or AH. No evident delusions. Insight limited. Judgment questionable. Staff reports patient calm, pleasant, attending groups, eating well, slept 7 hours overnight. - Time Spent With Patient Time Spent With Patient: 40 minutes - Pending Discharge Pending Discharge Within 24 Hours: No Pending Discharge Within 48 Hours: Yes Pending Discharge Date: 07/18/17 Pending Discharge Time: 11:00 ICD10 Worksheet Patient Problems: Problems Problem Status Onset Cyclothymia Acute Mood disorder Acute Suicide attempt by drug ingestion Acute
[2017-07-16] MEDS: LORazepam 0.5 MG TAB PO PRN ×2 (12:15→21:13)
[2017-07-16] MEDS: FLUoxetine 10 MG CAP PO SCH (20:28)
[2017-07-16] MEDS ORDERED: OLANZapine 2.5 MG TAB PO SCH (21:00)
--- NOTE | 2017-07-17 08:19 | SOAPPROG ---
SOAP Progress Note Assessment/Plan: Assessment: Cyclothymia History of Unspecified Depressive Disorder versus Bipolar disorder type II, PD NOS with dependent/avoidant traits History of Unspecified Neurocognitive Disorder Suicide attempt by OD on Diphenhydramine, transfer from [facility] ICU Housing, financial stressors Patient appears euthymic and future oriented but has a history of multiple overdoses. Plan: Patient is voluntary Refer to [facility]. Patient unwilling to go to [facility] but willing to get outpatient treatment after discharge. Coordinate discharge planning with father and step-mother and aunt Continue Fluoxetine 10mg QHS Increase Olanzapine 5mg QHS Monitor mood stability, judgment, risk of self-harm Possible discharge tomorrow if stable and completing safety plan 07/17/17 08:25 Subjective: CC: "I'm OK today" Patient reports sleeping well. Reports brief anxiety and restlessness yesterday improved with PRN ativan. Reports feeling calm this AM. Reports stable mood, denies agitation, irritability, suicidal thoughts, violent thoughts , paranoia, or hallucinations. Denies physical complaints. 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 Reports plan to call aunt regarding location of his wallet and other possessions. Reports after [facility] discharge in June 2016, continuing medication in a senior care for 2 weeks, then continuing medication without suicide attempts or psychiatric hospitalization thru October 2016 when he entered the and stopped taking medications. Reports willingness to continue medication after discharge and see a psychiatrist at [facility] and work with aunt to get his SS benefits restarted. Objective: Vital Signs Temp Pulse Resp BP Pulse Ox 36.4 C 82 14 113/64 96 07/17/17 06:51 07/17/17 06:51 07/17/17 06:51 07/17/17 06:51 07/17/17 06:51 Laboratory Results 07/14/17 06:10 Staff report patient slept 8 hours. Was mostly calm and denying SI yesterday, attended some groups, appeared anxious and pacing in PM and got Ativan at 21: 00. Patient has been eating well, interacting appropriately with staff and patients. Records from [facility] indicate patient hospitalized there 05/25/16-06/22/16, transferred from [facility] following Ativan OD a few days after discharging from [facility]. Note of past overdoses on medications and one past inpatient at [facility], outpatient treatment at [facility]. Noted past trails of Zyprexa, Ativan, Zoloft , Lexapro, Effexor, Vistaril, Trazodone. Diagnosed with Hyperlipidemia and prescribed fish oil. Neuropsychological Testing showed average IQ with reduced verbal memory. Diagnosed with Unspecified Depressive DO (Rule out bipolar disorder type 2), Personality Disorder with avoidant/dependent traits, PTSD, unspecified neurocognitive disorder. Discharged on Fish Oil, Fluoxetine 10mg, Olanzapine 10mg to [facility] senior care. Alert male. Ambulatory without tremors or weakness. Speech RRR, soft voice. Thoughts organized with limited information. Mood "fine" affect briefly reactive, brief smiling. Denies SI, HI, AH, or paranoia. Insight limited. - Time Spent With Patient Time Spent With Patient: 30 minutes - Pending Discharge Pending Discharge Within 24 Hours: Yes Pending Discharge Within 48 Hours: No Pending Discharge Date: 07/18/17 Pending Discharge Time: 11:00 ICD10 Worksheet Patient Problems: Problems Problem Status Onset Cyclothymia Acute Mood disorder Acute Suicide attempt by drug ingestion Acute
[2017-07-17] MEDS ORDERED: OLANZapine 2.5 MG TAB PO SCH (08:26)
[2017-07-17] MEDS ORDERED: LORazepam 0.5 MG TAB PO PRN (08:26)
[2017-07-17] MEDS: OMEGA-3 FATTY ACIDS 1,000 MG CAP PO SCH (08:43)
[2017-07-17] MEDS: FLUoxetine 10 MG CAP PO SCH (20:56)
[2017-07-18 06:51] VITALS: BP 116/58
[2017-07-18] MEDS: OMEGA-3 FATTY ACIDS 1,000 MG CAP PO SCH (08:48)
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
== END 2017-07-18 10:43 | disposition home or self-care (01) | DRG 883 ==
LOC: BBEH 13:15
DX: F34.0 Cyclothymic disorder (principal); F43.10 Post-traumatic stress disorder, unspecified; J02.9 Acute pharyngitis, unspecified; F84.0 Autistic disorder; Z59.0 Homelessness